=== PATIENT | male | born 1985 | race Caucasian/White ===

== ENCOUNTER 2017-09-02 05:09 | Inpatient (IN) | payer OTHER ==
[2017-09-02] VITALS (11 sets, daily range): BP systolic 88–137; BP diastolic 46–88
[~2017-09-02] VITALS: Ht 152.4 cm; Wt 93.4 kg
[~2017-09-02 05:09] MED LIST: FLEXERIL PO; NAPROXEN 500MG500 MG PO; NORCO 5-325 TA1 EACH; NORCO 5-325 TA1 EACH PO; PENICILLIN VK250 MG; PENICILLIN VK500 MG PO; PERCOCET 5-3251 EACH PO
[2017-09-02 05:30] LABS: URINE BILIRUBIN NEGATIVE (Negative); URINE BLOOD NEGATIVE (Negative); URINE CLARITY CLEAR; URINE COLOR YELLOW; URINE GLUCOSE-RANDOM NEGATIVE (Negative); URINE KETONES NEGATIVE (Negative); URINE LEUKOCYTES-REFLEX NEGATIVE (Negative); URINE NITRITE-REFLEX NEGATIVE (Negative); URINE PROTEIN NEGATIVE (Negative); URINE SPECIFIC GRAVITY <= 1.005 (1.005-1.030); URINE UROBILINOGEN 0.2 E.U./dl (0.2-1.0)
[2017-09-02 05:37] LABS: AMP/METHAMP Negative (Negative); BARBITURATES Negative (Negative); BENZODIAZEPINES Negative (Negative); COCAINE Negative (Negative); METHADONE Negative (Negative); OPIATES Negative (Negative); PCP Negative (Negative); THC POSITIVE (Negative)
[2017-09-02 05:39] LABS: ABSOLUTE BASOPHILS 0.1 thou/uL (0.0-0.2); ABSOLUTE EOSINOPHILS 0.4 thou/uL (0.0-0.7); ABSOLUTE LYMPHOCYTES 4.4 thou/uL (0.8-5.3); ABSOLUTE MONOCYTES 0.8 thou/uL (0.0-1.2); ABSOLUTE NEUTROPHILS 2.9 thou/uL (1.6-8.1); BASOPHILS 0.8 %; EOSINOPHILS 4.2 %; HEMATOCRIT 51.5 % (42.0-52.0); HEMOGLOBIN 17.7 gm/dL (14.0-18.0); LYMPHOCYTES 51.9 %; MCH 34.3 pg (26.0-34.0); MCHC 34.4 g/dL (28.0-37.0); MCV 99.7 fL (80.0-100.0); MONOCYTES 9.1 %; MPV 8.9 fl. (7.2-11.1); NUCLEATED RBCS 0 /100WBC; PLATELET COUNT* 173 thou/uL (150-400); RBC 5.16 mil/uL (4.50-6.00); WBC 8.5 thou/uL (4.0-11.0)
[2017-09-02 05:42] LABS: ANION GAP 9 mmol/L (7-16); BUN 10 mg/dL (7-18); CALCIUM 8.3 mg/dL (8.5-10.1); CHLORIDE 108 mmol/L (98-107); CO2 26 mmol/L (21-32); CREATININE 0.9 mg/dL (0.6-1.3); GLUCOSE 112 mg/dL (70-99); POTASSIUM 3.8 mmol/L (3.5-5.1); SODIUM 143 mmol/L (136-145)
[2017-09-02 05:49] LABS: ALBUMIN 4.5 g/dL (3.4-5.0); ALKALINE PHOSPHATASE 65 U/L (46-116); SGOT 31 U/L (15-37); SGPT 55 U/L (30-65); TOTAL BILIRUBIN 0.5 mg/dL (<0.1-1.0); TOTAL PROTEIN 7.6 g/dL (6.4-8.2); TROPONIN-I LEVEL <0.06 ng/mL (<0.06)
[2017-09-02 06:00] LABS: SALICYLATE 3.8 mg/dL (2.8-20.0)
--- NOTE | 2017-09-02 09:32 | NUR ---
PT ADMITTED TO ICU. ANSWERS QUESTIONS WITH SOME DIFFICULTY. SLEEPING DEEPLY NOW. FOLLOWS COMMANDS. UNABLE TO HOLD CONVERSATION. DENIES PAIN OR SOA. REQUESTING HELP FROM MENTAL HEALTH PROFESSIONAL. NURSE AT BEDSIDE 1:1.
--- NOTE | 2017-09-02 13:45 | EKG ---
[place] [address] ELECTROCARDIOGRAM REPORT Name: GUNNERMEGAN Room: [address] IN [facility]#: [id number] Admission: 09/02/17 Attend Phys: Nelia Rockwell MD Discharge: Date of : 89 Report #: [id number] THIS REPORT FOR: //name// [facility] ED Test Date: 2017-09-02 Test Time: 05:39:47 Pat Name: MEGAN MARTINO Department: Room: Gender: Food And Beverage Outlets Manager: MARILYN Garsia : 1985 Requested By: Juan Luis Order Number: [id number] MD: Smooth Hawkins Measurements Intervals [place] Rate: 66 P: 31 [place]: 139 QRS: 4 QRSD: 95 T: 2 QT: 387 QTc: 406 Interpretive Statements Sinus arrhythmia ST elev, probable normal early repol pattern Compared to ECG 09/04/2008 16:54:25 Sinus bradycardia no longer present Electronically Signed On 09-02-2017 13:45:08 CDT by Smooth Hawkins [email or web address] <ELECTRONICALLY SIGNED> By: Smooth Hawkins MD, [facility] 09/02/17 [id number] Smooth Hawkins MD, [facility] /EPI
[2017-09-03] VITALS: BP 112/67
--- NOTE | 2017-09-03 02:30 | NUR ---
PT TRANSFERED UP FROM ICU. VSS. AGREE WITH PREVIOUS FURNACE CARETAKER. SITTER IN PLACE FOR SAFETY. PT IS APPROPRIATE AND COOPERATIVE. NO C/O PAIN. MONITOR TRACING NSR. WILL CONT TO MONITOR.
[2017-09-03 04:00] VITALS: BP 120/84
[2017-09-03 04:52] LABS: ABSOLUTE EOSINOPHILS 0.3 thou/uL (0.0-0.7); ABSOLUTE LYMPHOCYTES 3.7 thou/uL (0.8-5.3); ABSOLUTE MONOCYTES 0.8 thou/uL (0.0-1.2); ABSOLUTE NEUTROPHILS 3.3 thou/uL (1.6-8.1); BASOPHILS 0.5 %; EOSINOPHILS 3.2 %; HEMATOCRIT 45.6 % (42.0-52.0); LYMPHOCYTES 45.7 %; MCH 34.1 pg (26.0-34.0); MCHC 34.3 g/dL (28.0-37.0); MCV 99.5 fL (80.0-100.0); MONOCYTES 9.5 %; MPV 9.5 fl. (7.2-11.1); NUCLEATED RBCS 0 /100WBC; PLATELET COUNT* 147 thou/uL (150-400); POLYS 41.1 %; RBC 4.59 mil/uL (4.50-6.00); WBC 8.1 thou/uL (4.0-11.0)
[2017-09-03 05:09] LABS: CREATININE 0.9 mg/dL (0.6-1.3); POTASSIUM 3.8 mmol/L (3.5-5.1)
[2017-09-03 05:17] LABS: HEMOGLOBIN 15.6 gm/dL (14.0-18.0)
--- NOTE | 2017-09-03 05:35 | NUR ---
END SHIFT: ASSESSMENT UNCHANGED. IVF INFUSING WITHOUT DIFFICULTY. REMAINS NSR. C/O PAIN IN BACK RELIEVED BY TYLENOL AND HEATING PAD. SITTER IN PLACE. WILL CONT TO MONITOR.
[2017-09-03 07:30] VITALS: BP 117/78
--- NOTE | 2017-09-03 11:50 | NUR ---
RECEIVED PT CARE 0700. PATIENT IS ALERT AND ORIENTED X4. VSS. TAG STRINGER TRACING SB. HEART RATE 50'S. PATIENT CAN MARIAELENA DOWN INTO THE 40'S WHEN HE IS ASLEEP. HE DENIES ANY SOA. O2 SAT 97% ON ROOM AIR. AM ASSESSMENT CHARTED. MEDS PER MAR. NEW ORDERS RECEIVED FOR A PSYCH CONSULT. IV SALINE LOCKED. PATIENT IS UP STANDBY ASSIST IN ROOM WITH BATHROOM PRIVILEDGES. GAIT IS STEADY. SITTER AT BEDSIDE. CALL LIGHT WITHIN REACH. WILL CONTINUE TO MONITOR.
[2017-09-03 11:55] VITALS: BP 128/91
--- NOTE | 2017-09-03 12:03 | NUR ---
Pt is A&O. Resides at home alone. Normally active and independent, works FT. No DME. No hx of HH or SNF. Supportive family. Pt admitted for SA, Pt stated "I really just need to stop drinking, because when I drink, I can't stop, then I black out, and things like this happen." Pt in agreement with going inpt, but stated "I just can't lose my job." Tele psych consult placed, Pt should be ready to dc once psych recommendation is made. Following.
--- NOTE | 2017-09-03 15:08 | NUR ---
Tele psych consult completed, Dr recommending inpt psych. Pt is patient pay. Faxed referrals to: [facility]-unable to accept, tx team feels Pt needs a dual dx facilty and they don't offer that. [facility]-no beds [facility]-no beds [facility]-they do not accept new Pts after noon on Fridays or Saturdays, CM to call in the morning to check for bed availability [facility] in [place]-waiting for call back [facility] in [facility]-FULL
--- NOTE | 2017-09-03 17:26 | NUR ---
PATIENT PROGRESSING TOWARDS GOALS. PATIENT DENIED ANY THOUGHTS OF HARMING HIMSELF. STARTED PATIENT ON [place] PER PSYCH RECOMMENDATIONS. PLANNING FOR INPATIENT PSYCH IF ABLE TO LOCATE A FACILITY. CASE MANAGEMENT ASSISTING WITH PLACEMENT. PATIENT UPDATED ON PLAN OF CARE AND IS AGREEABLE. HE IS TOLERATING HIS DIET WELL WITHOUT NAUSEA OR VOMITING. UP STANDBY ASSIST IN ROOM. GAIT STEADY. PLANNING FOR DC WHEN INPATIENT PSYCH FACILITY LOCATED. SITTER AT BEDSIDE.
[2017-09-03 17:38] VITALS: BP 140/83
[2017-09-03 21:08] VITALS: BP 138/77
[2017-09-04 00:01] VITALS: BP 126/82
--- NOTE | 2017-09-04 02:38 | NUR ---
PT WAS TRANSFERED TO [facility] IN [place], [place] [facility]IA [facility] AT 0125 THIS MORNING; PT VSS AND A+OX4. PT IS ABLE TO COMMUNICATE HIS NEEDS TO STAFF EFFECTIVELY AND HE DENIES PAIN AT TIME OF TRANSPORT. RECEIVING FACILITY GIVEN REPORT ON PT AT O130.
== END 2017-09-04 01:25 | DRG 918 ==
LOC: M.ERS 05:09 → M.ICU 05:52 → M.2W 05:52 → M.TBA-ER 05:52 → M.ICU 06:32 → M.2W 09-03 00:14
PROVIDERS: Emergency Medicine; Internal Medicine; ADMIT Internal Medicine
DX: T39.312A Poisoning by propionic acid derivatives, intentional self-harm, initial encounter (principal); T36.1X2A Poisoning by cephalosporins and other beta-lactam antibiotics, intentional self-harm, initial encounter; T40.5X2A Poisoning by cocaine, intentional self-harm, initial encounter; F17.210 Nicotine dependence, cigarettes, uncomplicated; F10.20 Alcohol dependence, uncomplicated; I45.6 Pre-excitation syndrome; Y92.89 Other specified places as the place of occurrence of the external cause; Z90.49 Acquired absence of other specified parts of digestive tract; Z87.81 Personal history of (healed) traumatic fracture; Z88.5 Allergy status to narcotic agent

== ENCOUNTER 2018-07-27 22:03 | Emergency (ER) | payer OTHER ==
[~2018-07-27] VITALS: Ht 175.3 cm; Wt 97.5 kg
[2018-07-27] MEDS ORDERED: GABAPENTIN 100100 MG (22:10)
[2018-07-27] MEDS ORDERED: ADDERALL 20 MG20 MG (22:10)
[2018-07-27] MEDS ORDERED: CYMBALTA20 MG (22:11)
[2018-07-27 23:34] VITALS: BP 138/92
== END 2018-07-27 23:36 | disposition home or self-care (01) ==
LOC: M.ERS 22:03
DX: S81.012A Laceration without foreign body, left knee, initial encounter (principal); Z90.49 Acquired absence of other specified parts of digestive tract; F17.210 Nicotine dependence, cigarettes, uncomplicated; Z88.6 Allergy status to analgesic agent; Z91.040 Latex allergy status; W18.39XA Other fall on same level, initial encounter; Y93.89 Activity, other specified; Y92.89 Other specified places as the place of occurrence of the external cause; Y99.8 Other external cause status

== ENCOUNTER 2019-01-01 05:35 | Emergency (ER) | payer OTHER ==
[~2019-01-01] VITALS: Ht 175.3 cm; Wt 93.0 kg
[~2019-01-01 05:35] MED LIST changes: +ADDERALL 20 MG20 MG; +CYMBALTA20 MG; +GABAPENTIN 100100 MG
[2019-01-01 05:56] LABS: HEMATOCRIT 45.7 % (42.0-52.0); HEMOGLOBIN 15.9 gm/dL (14.0-18.0); MCH 32.6 pg (26.0-34.0); MCHC 34.8 g/dL (28.0-37.0); MCV 93.7 fL (80.0-100.0); MPV 8.8 fl. (7.2-11.1); RBC 4.88 mil/uL (4.50-6.00); RDW-CV 14.3 % (10.5-14.5); WBC 10.7 thou/uL (4.0-11.0)
[2019-01-01 06:20] LABS: CALCIUM 8.4 mg/dL (8.5-10.1); POTASSIUM 3.3 mmol/L (3.5-5.1)
[2019-01-01 06:24] LABS: ALBUMIN 4.2 g/dL (3.4-5.0); TOTAL BILIRUBIN 0.3 mg/dL (<0.1-1.0); TOTAL PROTEIN 7.6 g/dL (6.4-8.2)
[2019-01-01 06:34] LABS: ALCOHOL 233 mg/dL (<10); SALICYLATE 4.5 mg/dL (2.8-20.0)
[2019-01-01 06:35] LABS: ACETAMINOPHEN < 2 ug/mL (10-30)
[2019-01-01 07:07] LABS: URINE BILIRUBIN NEGATIVE (Negative); URINE BLOOD NEGATIVE (Negative); URINE CLARITY CLEAR; URINE COLOR YELLOW; URINE GLUCOSE-RANDOM NEGATIVE (Negative); URINE KETONES NEGATIVE (Negative); URINE LEUKOCYTES NEGATIVE (Negative); URINE NITRITE NEGATIVE (Negative); URINE PROTEIN NEGATIVE (Negative); URINE SPECIFIC GRAVITY <= 1.005 (1.005-1.030); URINE UROBILINOGEN 0.2 E.U./dl (0.2-1.0)
[2019-01-01 07:21] LABS: AMP/METHAMP Negative (Negative); BARBITURATES Negative (Negative); BENZODIAZEPINES Negative (Negative); COCAINE Negative (Negative); METHADONE Negative (Negative); OPIATES Negative (Negative); PCP Negative (Negative); THC Negative (Negative)
[2019-01-01 10:17] VITALS: BP 164/89
--- NOTE | 2019-01-01 10:50 | EKG ---
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 Manager: [place] : 1985 Requested By: Constance Humphrey Order Number: [id number] MD: Nestor Miranda Measurements Intervals [place] Rate: 95 P: 33 [place]: 150 QRS: 7 QRSD: 92 T: 3 QT: 346 QTc: 435 Interpretive Statements Sinus rhythm Probable left atrial enlargement ST elev, probable normal early repol pattern Compared to ECG 09/02/2017 05:39:47 Sinus arrhythmia no longer present ST (T wave) deviation still present Electronically Signed On 01-01-2019 10:50:30 CDT by Nestor Miranda [email or web address] <ELECTRONICALLY SIGNED> By: Nestor Miranda MD, [facility] 01/01/19 1050 [id number] Nestor Miranda MD, [facility] /EPI
== END 2019-01-01 10:15 | disposition home or self-care (01) ==
LOC: M.ERS 05:35
PROVIDERS: Personal Emergency Response Attendant
DX: F10.129 Alcohol abuse with intoxication, unspecified (principal); Y90.7 Blood alcohol level of 200-239 mg/100 ml; F32.9 Major depressive disorder, single episode, unspecified; R45.851 Suicidal ideations; F17.210 Nicotine dependence, cigarettes, uncomplicated; Z90.49 Acquired absence of other specified parts of digestive tract; Z88.6 Allergy status to analgesic agent